=== PATIENT | female | born 1975 | race Caucasian/White ===

== ENCOUNTER 2016-08-08 14:20 | Observation (INO) ==
[2016-08-08] MEDS ORDERED: 0.9 % Sodium Chloride 500 ML IV ONE (15:28)
[2016-08-08 15:32] LABS: Basophils % 0.3 %; Eosinophils % 0.4 %; Hematocrit 37.9 % (35.3-44.9); Hemoglobin 12.3 g/dL (11.5-15.4); Immature Granulocytes % 0.4 % (0-4); Lymphocytes # 2.3 K/mcL (0.6-4.6); Lymphocytes % 20.4 %; Mean Corpuscular HGB Conc 32.5 g/dL (31.6-35.5); Mean Corpuscular Hemoglobin 26.3 pg (28.0-33.3); Mean Platelet Volume 10.3 fL (9.4-12.4); Monocytes # 0.4 K/mcL (0.0-1.3); Monocytes % 3.9 %; Neutrophils # 8.4 K/mcL (1.6-8.9); Platelet Count 333 K/mcL (140-400); Red Blood Count 4.68 M/mcL (3.82-4.97); Segmented Neutrophils % 74.6 %
--- NOTE | 2016-08-08 15:35 | Emergency Department Note ---
Disposition Clinical Impression: Chest pain Qualifiers: Chest pain type: precordial pain Qualified Code(s): R07.2 - Precordial pain Disposition: Admitted As Inpatient Condition: Good Chest Pain HPI - General Chief Complaint: ED Chest Pain Stated Complaint: CP Time Seen by Provider: 08/08/16 15:10 Source: patient Limitations: no limitations Vital Signs Reviewed: Yes Nursing Notes Reviewed: Yes - History of Present Illness HPI Narrative: 40-year-old female with history of blood clotting disorder that she is not know what it is, she is seen by Dr. Wynne, he saw her previously and her workup for factor V Leiden and other causes of clot disorders has been negative. Patient is chronically anticoagulated on Eliquis, she presents with chest pain and pressure for the last several days. She recently had a nonstress test with Dr. Rivera cardiology, that was slightly positive she was given Imdur, no left heart catheterization was performed. She now presents with 8 out of 10 crushing mid substernal pain, nonradiating, worse with deep breaths. She has previously had DVTs and is on ELiquis for prophylaxis, she had a CT of her chest done a few weeks ago to rule out PE. Pt complaint: chest pain Onset (ago): day(s) (4) Duration: intermittent Onset: during rest, during exertion Pain Location: substernal Severity: moderate Severity scale (1-10): 8 Quality: tightness, heaviness Pain Radiation: LUE Improves with: nothing Worsens with: exertion Associated symptoms: Reports: nausea, dyspnea. Denies: vomiting, diaphoresis Treatments prior to arrival chest pain: none - Related Data Home Medications Medication Instructions Recorded Confirmed Aspirin [Adult Low Dose Aspirin EC] 81 mg PO DAILY 08/01/15 08/08/16 [place]-3 Fatty Acids [Fish Oil] 600 mg PO DAILY 08/01/15 08/08/16 Hydrochlorothiazide [Microzide] 12.5 mg PO DAILY 09/09/15 08/08/16 Atorvastatin [Lipitor] 40 mg PO HS 07/31/16 08/08/16 Isosorbide MONOnitrate (24 HR) 60 mg PO DAILY 07/31/16 08/08/16 [Imdur] Previous Rx's Medication Instructions Recorded Apixaban [Eliquis] 2.5 mg PO BID #60 tablet 01/05/16 Ferrous Sulfate 325 mg PO DAILY #30 tablet 03/19/16 Allergies Allergy/AdvReac Type Severity Reaction Status Date / Time codeine AdvReac Nausea Verified 04/09/16 15:34 All systems ED: reviewed and negative except as stated. Constitutional: Denies: fever, chills, weakness ENT ED: Denies: ear pain, throat pain Cardiovascular: Reports: as per HPI, chest pain, dyspnea on exertion. Denies: palpitations, syncope, paroxysmal nocturnal dyspnea Respiratory: Reports: as per HPI, dyspnea. Denies: hemoptysis Gastrointestinal: Denies: abdominal pain, nausea, vomiting Genitourinary: Denies: urgency, dysuria Musculoskeletal: Denies: back pain, neck pain Integumentary: Denies: rash, abrasion Neurological: Denies: headache, weakness Chest Pain PMH - Past Medical History Medical history: Reports: hypertension, TIA Surgical history: Reports: Psychiatric history: Reports: no psych history DENTAL ASSISTANT INSTRUCTOR history: Reports: no DENTAL ASSISTANT INSTRUCTOR history - Social History Smoking Status: Former smoker Alcohol use: Reports: occasionally Drug use: Reports: none Physical Exam Constitutional: A 40-year-old female appears moderately uncomfortable, vital signs are essentially stable. Neck: normal inspection, neck is supple, trachea midline Resp: normal chest inspection, CTA bilaterally, no resp distress CV: RRR, no m/g/r GI: normal inspection, Soft, NTND, BS presen Back: normal inspection, no tenderness to palpation Neuro: A&O3, no gross motor or sensory deficits bilaterally Skin: No rashes, skin warm, dry, intact - General Limitations: no limitations General appearance: alert Course Course Narrative: 40-year-old female with history of blood clotting disorder, on anticoagulation chronically, concern for ACS, she was sent by cardiology for further workup, we will discuss with Dr. Sutherland after chest pain workup at a d-dimer will reassess - Consultations Consultation #1: Dr Sutherland called the emergency department, he recommends admission for ACS to the hospitalist service, discontinue paretic regulation tonight and start her on heparin, aspirin at this time is okay patient will likely have a left heart catheterization tomorrow morning with cardiology to place admission to hospitalist Dr. Shah excepting Vital Signs Temperature 98.3 F 08/08/16 14:22 Pulse Rate 67 08/08/16 14:22 Respiratory Rate 20 08/08/16 14:22 Blood Pressure 163/104 08/08/16 14:22 O2 Sat by Pulse Oximetry 100 08/08/16 14:22 Temperature 98.2 F 08/08/16 19:05 Pulse Rate 65 08/08/16 19:05 Respiratory Rate 16 08/08/16 19:05 Blood Pressure 116/75 08/08/16 19:05 O2 Sat by Pulse Oximetry 96 08/08/16 19:05 Oxygen Delivery Oxygen Delivery Room Air Chest Pain - Differential Diagnosis Likely: fracture of rib - Medical Records Medical records reviewed: Yes I reviewed the patient's medical records. - Lab Data Lab results reviewed: Yes I reviewed the patient's lab results. Result diagrams: 08/08/16 15:22 08/08/16 15:22 Lab Results 08/08/16 08/08/16 08/08/16 Range/Units 15:22 15:22 15:22 WBC 11.3 H (4.3-11.1) K/mcL RBC 4.68 (3.82-4.97) M/mcL Hgb 12.3 (11.5-15.4) g/dL Hct 37.9 (35.3-44.9) % MCV 81.0 L (83.0-100.0) fL MCH 26.3 L (28.0-33.3) pg MCHC 32.5 (31.6-35.5) g/dL RDW 15.0 H (11.5-14.5) % Plt Count 333 (140-400) K/mcL MPV 10.3 (9.4-12.4) fL Immature Gran % 0.4 (0-4) % Seg Neutrophils % 74.6 % Lymphocytes % 20.4 % Monocytes % 3.9 % Eosinophils % 0.4 % Basophils % 0.3 % Neutrophils # 8.4 (1.6-8.9) K/mcL Lymphocytes # 2.3 (0.6-4.6) K/mcL Monocytes # 0.4 (0.0-1.3) K/mcL Eosinophils # 0.0 (0.0-0.6) K/mcL Basophils # 0.0 (0.0-0.2) K/mcL PT 12.0 (9.4-12.1) Seconds INR 1.1 APTT 29.9 (26.0-36.0) Seconds D-Dimer 289 (0-500) ng/mLFEU Sodium 138 (136-145) mEq/L Potassium 3.5 (3.5-4.5) mEq/L Chloride 104 (98-109) mEq/L Carbon Dioxide 23 (19-29) mEq/L BUN 10 (7-20) mg/dL Creatinine 0.74 (0.57-1.11) mg/dL Est GFR ( Amer) > 60 (> 60) Est GFR (Non-Af Amer) > 60 (> 60) BUN/Creatinine Ratio 14 (6-26) Glucose 100 H (70-99) mg/dL Calculated Osmolality 285 (280-300) Calcium 8.8 (8.6-10.8) mg/dL Troponin I (0-0.03) ng/mL 08/08/16 Range/Units 15:22 WBC (4.3-11.1) K/mcL RBC (3.82-4.97) M/mcL Hgb (11.5-15.4) g/dL Hct (35.3-44.9) % MCV (83.0-100.0) fL MCH (28.0-33.3) pg MCHC (31.6-35.5) g/dL RDW (11.5-14.5) % Plt Count (140-400) K/mcL MPV (9.4-12.4) fL Immature Gran % (0-4) % Seg Neutrophils % % Lymphocytes % % Monocytes % % Eosinophils % % Basophils % % Neutrophils # (1.6-8.9) K/mcL Lymphocytes # (0.6-4.6) K/mcL Monocytes # (0.0-1.3) K/mcL Eosinophils # (0.0-0.6) K/mcL Basophils # (0.0-0.2) K/mcL PT (9.4-12.1) Seconds INR APTT (26.0-36.0) Seconds D-Dimer (0-500) ng/mLFEU Sodium (136-145) mEq/L Potassium (3.5-4.5) mEq/L Chloride (98-109) mEq/L Carbon Dioxide (19-29) mEq/L BUN (7-20) mg/dL Creatinine (0.57-1.11) mg/dL Est GFR ( Amer) (> 60) Est GFR (Non-Af Amer) (> 60) BUN/Creatinine Ratio (6-26) Glucose (70-99) mg/dL Calculated Osmolality (280-300) Calcium (8.6-10.8) mg/dL Troponin I 0.00 (0-0.03) ng/mL - Radiology Data Radiology results reviewed: Yes I reviewed the patient's radiology results. Chest X-Ray 08/08/16 14:25 IMPRESSION: No acute cardiopulmonary process. D/ / Aris Beckwith MD / Aris Beckwith MD Interpreting Provider: Aris Beckwith MD - EKG Data EKG attestation: Yes I reviewed and interpreted this EKG. EKG shows normal: sinus rhythm Rate: normal (63 bpm AL 146/102 QTc 446 Mrs. elevations or depressions. Similar to previous EKG on 07/2016) Vale/QRS: normal Interpretation: no acute changes - Core Measures AMI Core Measures Followed: Yes Heart Score - Score History: Moderately Suspicious EKG: Non Specific repolarisation Disturbance Age: Less than 45 Risk Factors: 1-2 risk factors Troponin: Less than normal limit HEART Score Total: 3 Attestation Statement - Attestation Attestation: I examined this patient and my medical decision-making was reviewed with the Resident Physician. I agree with the documented findings, disposition and treatment plan as described except to the extent set forth below. Known hypercoagulable state, presents w CP. Dr. Merino spoke w Cardio who wants pt admitted for heart cath. Serial EKGs neg, trop neg. D-dimer lower than her baseline.
[2016-08-08 15:36] LABS: INR 1.1
[2016-08-08 15:38] LABS: Activated Partial Thrombo Time 29.9 Seconds (26.0-36.0)
[2016-08-08 15:41] LABS: BUN/Creatinine Ratio 14 (6-26); Blood Urea Nitrogen 10 mg/dL (7-20); Calcium 8.8 mg/dL (8.6-10.8); Carbon Dioxide 23 mEq/L (19-29); Chloride 104 mEq/L (98-109); Glucose 100 mg/dL (70-99); Osmolality,Calculated 285 (280-300); Potassium 3.5 mEq/L (3.5-4.5); Sodium 138 mEq/L (136-145); eGFR For African Americans > 60 (> 60); eGFR For Non-African Americans > 60 (> 60)
[2016-08-08] MEDS ORDERED: Aspirin 325 MG TABLET PO ONE (16:27)
[2016-08-08] MEDS: Nitroglycerin 0.4 MG TAB.SUBL SL PRN ×3 (16:46→16:57)
--- NOTE | 2016-08-08 17:13 | Internal Med History&Physical ---
Date of Encounter: 08/08/16 Time of Encounter: 16:50 Assessment and Plan (1) Chest pain Current visit: Yes Status: Acute Acute left-sided chest pain. Atypical in nature but worsens with activity. Recent stress test showed possible apical reversible ischemia. Will treat with nitroglycerin, aspirin and statin. Patient on Eliquis. Will hold and start heparin. Consult cardiology. Plan for cardiac catheterization per the recommendations tomorrow. Place patient on telemetry. Trend troponins. Qualifiers: Chest pain type: precordial pain Qualified Code(s): R07.2 - Precordial pain (2) Thrombotic disorder Current visit: Yes Status: Chronic Patient on anticoagulation with Eliquis. We will hold for now and start IV heparin. Internal Medicine - H&P: HPI Chief complaint: Chest pain Admitted From: Emergency Dept Plans for Post Hospital Care: Home History of present illness: Ms. Mejia is a 40 year old female with history of unknown related disorder and previous venous thromboembolism presented to the ER with complaints of chest pain. She has been having dull aching kind of chest pain for past 2 months and has been having intermittent sharp stabbing kind of chest pain along with it. Today's episode started around 10:30 AM and has continued despite receiving 3 doses of nitroglycerin. Pain is located in the left side of her chest wall and it is nonradiating. It is associated with shortness of breath especially with ambulation. No palpitations. No nausea vomiting or diarrhea. Past Med Surg Social Fam HX - Past Medical History Medical history: hypertension, TIA Psychiatric history: no psych history - Past Surgical History Surgical History: - Social History Smoking Status: Former smoker Smokeless Tobacco Status: No Alcohol use: occasionally Drug use: none Internal Medicine - H&P: Meds Aspirin [Adult Low Dose Aspirin EC] 81 mg PO DAILY 08/01/15 [History] [place]-3 Fatty Acids [Fish Oil] 600 mg PO DAILY 08/01/15 [History] Hydrochlorothiazide [Microzide] 12.5 mg PO DAILY 09/09/15 [History] Apixaban [Eliquis] 2.5 mg PO BID #60 tablet 01/05/16 [Rx] Ferrous Sulfate 325 mg PO DAILY #30 tablet 03/19/16 [Rx] Atorvastatin [Lipitor] 40 mg PO HS 07/31/16 [History] Isosorbide MONOnitrate (24 HR) [Imdur] 60 mg PO DAILY 07/31/16 [History] Allergies codeine Adverse Reaction (Verified 04/09/16 15:34) Nausea All Systems PM: A 10-system review of systems was performed and is negative for pertinent findings except as documented above in the HPI. - Constitutional Constitutional: no chills, no fever(s), no night sweats - EENT Eyes: no change in vision, no discharge, no pain, no photophobia Ears: no ear discharge, no ear pain, no tinnitus Nose, mouth and throat: no dysphagia, no nasal discharge, no neck pain, no sore throat - Cardiovascular Cardiovascular ROS IM: chest pain, dyspnea on exertion, no diaphoresis, no dyspnea, no lightheadedness, no palpitations, no syncope - Respiratory Respiratory: no cough, no dyspnea, no wheezing, no excessive phlegm production - Gastrointestinal Gastrointestinal: no abdominal pain, no diarrhea, no hematemesis, no hematochezia, no melena, no nausea, no vomiting - Genitourinary Genitourinary: no change in urinary stream, no dysuria, no flank pain, no hematuria - Musculoskeletal Musculoskeletal ROS IM: no numbness, no tingling - Integumentary Integumentary IM: no rash, no unusual bruising - Neurological Neurological ROS: no confusion, no convulsions, no focal weakness, no numbness, no tingling, no tremor(s) - Hematologic/Lymphatic Hematologic/Lymphatic: no easy bruising - Constitutional Vitals: Temp Pulse Resp BP Pulse Ox 98.3 F 77 18 134/86 99 08/08/16 14:22 08/08/16 17:02 08/08/16 17:05 08/08/16 17:05 08/08/16 17:02 General appearance: Present: cooperative, A&O X 3, obese, answers questions appropriately Exam: Moderate distress - Head Head exam: Present: atraumatic, normocephalic - Eye Eye exam: Present: EOMI, PERRL, conjuntiva pink, sclera anicteric - Neck Neck exam general surgery: Present: supple, trachea midline. Absent: lymphadenopathy - Respiratory Respiratory exam: Present: CTAB. Absent: accessory muscle use, rales, rhonchi, wheezes - Cardiovascular Cardiovascular exam: Present: RRR, +S1, +S2. Absent: diastolic murmur, gallop, rubs, systolic murmur Additional comments: Left-sided chest wall tenderness present to deep palpation - GI/Abdominal GI/Abdominal exam: Present: normal bowel sounds, soft, no peritoneal signs. Absent: distended, tenderness - Extremities Exam Extremities exam: Present: warm, radial pulses palpable and symetrical. Absent : calf tenderness, cyanotic, pedal edema - Neurological Exam Neurological exam: Present: CN II-XII intact, oriented X3, no focal deficits, strengths equal and symetr throughout. Absent: facial droop, speech deficit - Skin Skin exam: Present: dry, intact Internal Med - H&P Results - Labs CBC & Chem 7: 08/08/16 15:22 08/08/16 15:22 - EKG Data -: EKG Interpreted by Myself EKG shows normal: sinus rhythm - EKG Data Interpretation IM: normal EKG - Impressions Impressions Chest X-Ray 08/08/16 14:25 IMPRESSION: No acute cardiopulmonary process. D/ / Aris Beckwith MD / Aris Beckwith MD Interpreting Provider: Aris Beckwith MD - Attending Attestation This document has been at least partially created by [employer] recognition technology by Dr. Santiago. Errors in grammar, wording or other phrases may exist. If errors are found after the documentation is signed, they will be addressed individually in the addendum section of this document when appropriate.
[2016-08-08] MEDS ORDERED: *HR* Morphine 2 MG/ML SYRINGE IVP PRN (17:21)
[2016-08-08] MEDS ORDERED: *HR* Heparin 5,000 UNIT/ML VIAL IVP PRN ×2 (17:21)
[2016-08-08] MEDS ORDERED: Nitroglycerin 25 MG/250 ML INFUS..BTL IVC SCH (17:30)
[2016-08-08] MEDS ORDERED: Heparin 25,000 UNIT/500 ML D5W 25,000 UNIT/500 ML MLS IVC SCH (17:30)
[2016-08-09 04:50] LABS: INR 1.1; Prothrombin Time 12.2 Seconds (9.4-12.1)
[2016-08-09 05:49] LABS: Basophils % 0.4 %; Eosinophils # 0.1 K/mcL (0.0-0.6); Eosinophils % 1.2 %; Hematocrit 34.8 % (35.3-44.9); Hemoglobin 11.1 g/dL (11.5-15.4); Immature Granulocytes % 0.3 % (0-4); Lymphocytes # 3.5 K/mcL (0.6-4.6); Lymphocytes % 34.4 %; Mean Corpuscular HGB Conc 31.9 g/dL (31.6-35.5); Mean Corpuscular Hemoglobin 26.7 pg (28.0-33.3); Mean Corpuscular Volume 83.9 fL (83.0-100.0); Mean Platelet Volume 11.2 fL (9.4-12.4); Monocytes # 0.4 K/mcL (0.0-1.3); Monocytes % 4.1 %; Platelet Count 285 K/mcL (140-400); Red Blood Count 4.15 M/mcL (3.82-4.97); Red Cell Distribution Width 15.4 % (11.5-14.5); Segmented Neutrophils % 59.6 %
[2016-08-09 05:51] LABS: BUN/Creatinine Ratio 13 (6-26); Blood Urea Nitrogen 10 mg/dL (7-20); Calcium 8.2 mg/dL (8.6-10.8); Carbon Dioxide 24 mEq/L (19-29); Chloride 104 mEq/L (98-109); Glucose 84 mg/dL (70-99); Osmolality,Calculated 284 (280-300); Potassium 3.2 mEq/L (3.5-4.5); Sodium 138 mEq/L (136-145); eGFR For African Americans > 60 (> 60); eGFR For Non-African Americans > 60 (> 60)
[2016-08-09] MEDS ORDERED: (Omega-3 Fatty Acids [Fish Oil] 600 MG) PO SCH (09:00)
[2016-08-09] MEDS ORDERED: hydroCHLOROthiazide 25 MG TABLET PO SCH (09:00)
[2016-08-09] MEDS ORDERED: Aspirin Enteric Coated 81 MG Tablet PO SCH (09:00)
--- NOTE | 2016-08-09 10:02 | Internal Med Progress Note ---
Date of Encounter: 08/09/16 Time of Encounter: 08:30 - Assessment and plan (1) Chest pain Status: Acute Assessment and plan: Pt reports 2 month history of dull, achey, constant L chest pain, worse with exertion. Pt was placed on Imdur by cardiology and reports no relief. 9 days ago she started having sharp, intermittent L chest pain that was also worse with exertion. She denies nausea, diaphoresis, or radiation of pain. Pt was seen in the ED for the same 9 days ago and was sent home after negative evaluation. Pain became worse yesterday with SOB also with exertion. Pt had stress recently that showed possible apical reversible ischemia. Pt was seen by cardiology this a.m. and may have cath today. Troponins were all negative, 0.00 , EKG NSR. Telemetry Heparin gtt Nitroglycerin gtt Monitor labs Cardiology for possible cath Cardiac diet after NPO Qualifiers: Chest pain type: other chest pain Qualified Code(s): R07.89 - Other chest pain; R07.8 - Other chest pain (2) Thrombotic disorder Status: Chronic Assessment and plan: Pt states that she has been treated by Dr. Navarrete for undiagnosed clotting disorder. Pt has strong family history of Factor V, but states that she was told that was not what she has. Pt had TIA last May that possibly resulted from superficial clot in her leg and she was finally placed on Eliquis. Last dose of Eliquis was yesterday at 0700 and she was started on Heparin gtt last night at 2000 in anticipation of possible cath this am. INR 1.1 this a.m. Heparin gtt Monitor labs (3) Iron deficiency anemia Status: Chronic Assessment and plan: Pt states that she was found to be anemic and again was being seen by Dr. Navarrete. Pt states that she has an appt with new religious studies professor in late August. PCP started her on her iron supplements recently and she has not been as fatigued as she had been when she had stopped taking them when her levels normalized and supplementation was stopped by Rosalba. Hgb 11.1 today. Monitor labs Continue FeSo4 dose from home. Qualifiers: Iron deficiency anemia type: unspecified iron deficiency Qualified Code(s) : D50.9 - Iron deficiency anemia, unspecified (4) DVT (deep venous thrombosis) Status: Acute Assessment and plan: Heparin gtt currently in anticipation of cardiac cath. Pt takes Eliquis for what she refers to as a superficial clot last May that was linked to TIA. INR 1.1. Monitor coagulation labs Maintain heparin gtt Qualifiers: DVT location: lower extremity Laterality: right Chronicity: chronic Qualified Code(s): I82.501 - Chronic embolism and thrombosis of unspecified deep veins of right lower extremity - Time Spent With Patient less than 15 minutes - Subjective Interval history: Pt reports 2 month history of constant dull ache in L chest with intermittent sharp, stabbing pain in L chest x 9 days. Pt was seen in ED last week for same and sent home, pain did not subside. She reports pain and sob with exertion yesterday while walking to meeting and up and down some stairs. States that she did get partial relief at midnight while lying still and on NTG gtt. She is still having the constant dull pain, but the sharp pains have stopped. - Constitutional Vitals: Temp Pulse Resp BP Pulse Ox 98.1 F 62 16 148/90 98 08/09/16 09:25 08/09/16 09:25 08/09/16 09:25 08/09/16 09:25 08/09/16 09:25 General appearance: Present: cooperative, A&O X 3, no acute distress, obese, answers questions appropriately - Head Head exam: Present: atraumatic, normal inspection - Eye Eye exam: Present: normal appearance, conjuntiva pink - ENT ENT exam: Present: mucous membranes moist, normal exam - Neck Neck exam general surgery: Present: full ROM, normal inspection. Absent: lymphadenopathy, tenderness - Respiratory Respiratory exam: Present: CTAB. Absent: chest wall tenderness, decreased breath sounds, rales, respiratory distress, rhonchi, stridor, wheezes - Cardiovascular Cardiovascular exam: Present: RRR, +S1, +S2. Absent: diastolic murmur, systolic murmur - GI/Abdominal GI/Abdominal exam: Present: normal bowel sounds. Absent: hepatomegaly, tenderness - Extremities Exam Extremities exam: Present: full ROM, normal capillary refill, normal inspection , warm, radial pulses palpable and symetrical. Absent: calf tenderness, cyanotic, joint swelling, pedal edema, tenderness - Neurological Exam Neurological exam: Present: alert, oriented X3, no focal deficits. Absent: facial droop, speech deficit - Psychiatric Psychiatric exam: Present: normal affect, normal mood Internal Medicine: Result - Labs CBC & Chem 7: 08/09/16 02:06 08/09/16 02:06 Labs: Short CBC 08/09/16 Range/Units 02:06 WBC 10.1 (4.3-11.1) K/mcL Hgb 11.1 L (11.5-15.4) g/dL Hct 34.8 L (35.3-44.9) % Plt Count 285 (140-400) K/mcL Neutrophils # 6.0 (1.6-8.9) K/mcL BMP 08/09/16 02:06 Sodium 138 Potassium 3.2 L Chloride 104 Carbon Dioxide 24 BUN 10 Creatinine 0.77 Glucose 84 Calcium 8.2 L Cardiac Enzymes 08/09/16 08/09/16 Range/Units 02:06 08:53 Troponin I 0.00 0.00 (0-0.03) ng/mL - ABG Interpretation ABG results: PT/INR, D-dimer PT 12.2 Seconds (9.4-12.1) H 08/09/16 02:06 D-Dimer 289 ng/mLFEU (0-500) 08/08/16 15:22 Consult Discharge Plan - Plan Instructions: Chest Pain (DC) Additional Instructions: Please remember to take your Eliquis twice daily Please restart your home medications, Eliquis tonight. Please follow up with your primary care provider within the next week to 10 days for follow up Keep your appointment with Dr. Sutherland on Saturday Return if you have any other problems or concerns or if your pain returns. Referrals: Hortencia Haro CNP [Primary Care Provider] - 08/17/16 10:30 am
--- NOTE | 2016-08-09 10:54 | Cardiology Consult Note ---
Date of Encounter: 08/09/16 Time of Encounter: 09:00 Assessment and Plan (1) Chest pain Current Visit: Yes Status: Acute Per cardiology: -Acute episode of sharp stabbing chest pain that occured with excertion. -Chest pain associated with increased fatigue and increased shortness of breath. -Stress 07/13/16 with small sized, mild intensity, reversible apical septal defect. Could be very small area of ischemia vs. artifact. -On asa, statin, heparin drip, and nitro drip. -Failed conservative outpatient treatment with imdur. -Takes eliquis at home for history of DVT, has not had since yesterday morning. -ECG with sinus rhythm. -K 3.2 -Echo showed EF 60%, mild to moderate AR, normal diastolic function June 2015. -DIscussed with Dr.JOhn Li. PLan for LHC today. Risks versus benefits of LHC explained to pateint. Patient agreeable to cath. -Will replace K. -Further recommendations once cardiac catheterization complete. (LYNDSEY) Qualifiers: Chest pain type: other chest pain Qualified Code(s): R07.89 - Other chest pain; R07.8 - Other chest pain Discussion w patient/family: The assessment and plan as outlined above was discussed with the patient who expressed understanding and agreement. All questions were answered. Thank you for involving us in the care of your patient. Please call with any questions. Patient was seen and examined with JULIANN Kamara DIscussed and reviewed with Dr.John Li. History of Present Illness Consult date: 08/08/16 Requesting physician: Berlin Merino Consult reason: chest pain Chief complaint: chest pain History of present illness: Ms. Mejia is a 40 year old female with a relevant past medical history of HTN, anemia, TIA, DVT, previous smoker. Patient has been having a dull chest pain for the past 2 months. Patient has had multiple trips to the ER and has been seen by . ON 07/13/16 patient had nuclear stress test which showed EF 68% , small sized, mild intensity, reversible apical septal defect. This was read as could represent a very small area of ischemia, however it is suspected to be artifact. Patient was seen by 07/18/16, at that visit the pateint was started on imdur. At that time, she was agreeable to watch and monitor. The patient states that with the imdur the chest pain was tolerable. SHe states it was never completely releived, but it was better. Patient states last week she had an episode of sharp. stabbing pain which is unlike her normal pain. SHe states she went to the ER and troponins were negative and ECG was normal. The ER provider was in contact with cardiology office and made her a close follow up appoiintment with . Yesterday, the patient was climbing a flight of stairs when she got intense, sharp, stabbing left sided chest pain. Patient states she sat down and the pain lessened. Patient came to ER and was given nitro in ER. Patient states this lessened pain more. Patient states pain was never completely relieved until she laid down. Currently patient has her normal dull aching chest pain, but does not have sharp stabbing pain. Patient is currently on a nitro drip at 10mcg/min. (LYNDSEY). Past Med Surg Social Fam HX - Past Medical History Attestation: Yes The following information was validated with the patient. Source: patient, old records reviewed Medical history: DVT, hypertension, TIA Psychiatric history: no psych history - Past Surgical History Surgical History: - Social History Smoking Status: Former smoker Smokeless Tobacco Status: No Alcohol use: occasionally Drug use: none - Family History Mother Living Status: Age at : 60 Cause of : Heart Attack Hx Family Cardiac Disorders: Yes Hx Family Cancer: Yes Hx Family Endocrine Disorder: Yes Father Living Status: Age at : 62 Cause of : Sepsis Hx Family Cancer: Yes Medications and Allergies Aspirin [Adult Low Dose Aspirin EC] 81 mg PO DAILY 08/01/15 [History] [place]-3 Fatty Acids [Fish Oil] 600 mg PO DAILY 08/01/15 [History] Hydrochlorothiazide [Microzide] 12.5 mg PO DAILY 09/09/15 [History] Apixaban [Eliquis] 2.5 mg PO BID #60 tablet 01/05/16 [Rx] Ferrous Sulfate 325 mg PO DAILY #30 tablet 03/19/16 [Rx] Atorvastatin [Lipitor] 40 mg PO HS 07/31/16 [History] Isosorbide MONOnitrate (24 HR) [Imdur] 60 mg PO DAILY 07/31/16 [History] Allergies codeine Adverse Reaction (Verified 04/09/16 15:34) Nausea All Systems Review: A 10-system review of systems was performed and is negative for pertinent findings except as documented above in the HPI. - Constitutional Constitutional: fatigue - Cardiovascular Cardiovascular: as per HPI, chest pain at rest, chest pain with exertion, dyspnea on exertion - Respiratory Respiratory: dyspnea Physical Examination Vital Signs, Last 4 Hours Temp Pulse Resp BP Pulse Ox 08/09/16 09:25 98.1 F 62 16 148/90 98 08/09/16 07:04 97.8 F 65 17 132/84 100 General: Conversant, No Apparent Distress HEENT: Atraumatic, Normocephaly, Mucus Membranes Moist Neck: No JVD, Normal carotid pulses Cardiac: Reg Rate and Rhythm, Normal S1 and S2, No Murmur Lungs: Normal Breath Sounds, No Wheeze, Rales, Rhonchi Neuro: Alert and responsive, No focal deficits noted Abdomen: Soft, Non-Tender Skin: No rashes noted on visualized skin Musculoskeletal: No Chest Wall Tenderness Extremities: No Clubbing, No Cyanosis, No Edema, Normal Pulses Results 08/09/16 02:06 08/09/16 02:06 Lab Results Impressions Chest X-Ray 08/08/16 14:25 IMPRESSION: No acute cardiopulmonary process. D/ / Aris Beckwith MD / Aris Beckwith MD Interpreting Provider: Aris Beckwith MD Active Medications Acetaminophen (Tylenol) 500 mg PO Q6HR PRN PRN Reason: Mild Pain Stop: 02/07/17 17:22 Aspirin (Aspirin Ec) 81 mg PO DAILY ROSANNE Stop: 02/08/17 09:01 Last Admin: 08/09/16 10:46 Dose: 81 mg Atorvastatin Calcium (Lipitor) 40 mg PO HS ROSANNE Stop: 02/07/17 21:01 Last Admin: 08/08/16 20:05 Dose: 40 mg Ferrous Sulfate (Ferrous Sulfate) 325 mg PO DAILY ROSANNE Stop: 02/08/17 09:01 Last Admin: 08/09/16 10:47 Dose: 325 mg Heparin Sodium (Porcine) (Heparin) 4,000 unit IVP Q6HR PRN PRN Reason: SEE COMMENTS Stop: 02/07/17 17:22 Last Admin: 08/09/16 05:15 Dose: 4,000 unit Heparin Sodium (Porcine) (Heparin) 2,000 unit IVP Q6H PRN PRN Reason: SEE COMMENTS Stop: 02/07/17 17:22 Hydrochlorothiazide (Hydrochlorothiazide) 12.5 mg PO DAILY ROSANNE Stop: 02/08/17 09:01 Last Admin: 08/09/16 10:47 Dose: 12.5 mg Heparin Sodium/Dextrose (Heparin 25,000 Unit/500 Ml D5w) 25,000 unit in 500 mls @ 20.684 mls/hr IVC .Q24H ROSANNE; 12 UNIT/KG/HR PRN Reason: Protocol Stop: 02/07/17 17:31 Last Titration: 08/09/16 04:44 Dose: 16.12 unit/kg/hr, 27.785 mls/hr Nitroglycerin (Nitroglycerin) 25 mg in 250 mls @ 3 mls/hr IVC .Q24H ROSANNE; 5 MCG/ MIN PRN Reason: Protocol Stop: 02/07/17 17:31 Last Titration: 08/08/16 21:24 Dose: 10 mcg/min, 6 mls/hr Morphine Sulfate (Morphine Sulfate) 4 mg IVP Q3H PRN PRN Reason: Severe Pain (7-10) Stop: 02/07/17 17:22 Nitroglycerin (Nitroglycerin) 0.4 mg SL Q5MIN PRN PRN Reason: Chest Pain Stop: 02/07/17 16:28 Last Admin: 08/08/16 16:57 Dose: 0.4 mg Pharmacy Profile Note (Patient Taking Own Medication) 0 each PO DAILY ROSANNE Stop: 02/08/17 09:01 Last Admin: 08/09/16 10:47 Dose: Not Given Laboratory Tests 08/08/16 08/09/16 08/09/16 15:22 02:06 02:06 WBC 10.1 Hgb 11.1 L Potassium 3.2 L Creatinine 0.77 Troponin I 0.00 08/09/16 08/09/16 02:06 08:53 WBC Hgb Potassium Creatinine Troponin I 0.00 0.00 - Imaging and Cardiology Chest Xray: report reviewed Stress Test: report reviewed Echo: report reviewed - EKG Interpretation EKG results cardiology: personally reviewed (ECG with sinus rhythm), other ( Telemtry reviewed with average heart rate 63, occasional PVCs and PACs noted.) Consult Discharge Plan - Plan Referrals: Hortencia Haro CNP [Primary Care Provider] -
--- NOTE | 2016-08-09 12:41 | Pre-Sedation Evaluation ---
Pre-sedation evaluation - Pre-sedation checklist Date of procedure: 08/09/16 Procedure: heart cath Recent Vitals: Last Vital Signs Temp 97.9 F 08/09/16 10:59 Pulse 69 08/09/16 10:59 Resp 15 08/09/16 10:59 BP 131/79 08/09/16 10:59 Pulse Ox 100 08/09/16 10:59 H&P (including ROS) documented in medical record: Yes Previous reaction to sedatives/anesthetics: Yes; explain in comment Dietary Status: NPO after Midnight Dentition: No loose teeth or bridges ASA Classification *see protocol: CLASS II-Mild systemic disease Plan of Care: Pt appropriate candidate for procedure/moderate/conscious sedation , Risks/benefits of procedure/sedation discussed w/ patient/family
--- NOTE | 2016-08-09 12:49 | Electrocardiograph Report ---
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
--- NOTE | 2016-08-09 12:54 | Electrocardiograph Report ---
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
[2016-08-09] MEDS ORDERED: *HR* Heparin 10,000 UNIT/10 ML VIAL ONE (13:51)
[2016-08-09] MEDS ORDERED: 0.9 % Sodium Chloride 2,000 ML ONE (13:51)
[2016-08-09] MEDS ORDERED: Heparin 1,000 UNITS/500 mL NS 500 ML ONE (13:51)
[2016-08-09] MEDS ORDERED: Nitroglycerin 1,000 MCG/10 ML VIAL IV ONE (13:52)
[2016-08-09] MEDS ORDERED: Verapamil 5 MG/2 ML VIAL ONE (14:02)
[2016-08-09] MEDS ORDERED: *HR* FentaNYL (PF) 100 MCG/2 ML VIAL ONE (14:11)
[2016-08-09] MEDS ORDERED: *HR* Midazolam HCl 2 MG/2 ML VIAL ONE ×2 (14:11→14:26)
--- NOTE | 2016-08-09 14:21 | Electrocardiograph Report ---
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
--- NOTE | 2016-08-09 14:59 | Invasive Diagnostic Lab Proc ---
Name: Zee Mejia Date of Study: 08/09/2016 Date: 1975 Ht: 66.1in Medical Record#: [id number] Age: 40 Wt: 196.21lb Gender: Female BSA: 1.99 Order #: [id number] BMI: 31.53 Physicians Procedure Physician: Sean Mantilla MD, FACC Referring MD: Hortencia Haro CNP Referring MD: Staff Name Position Time In Ashyln Willson RN Monitor 02:15 PM Kelsey Thomas RN Drapery Estimator 02:15 PM Winter Lin RT (R) Scrub 02:15 PM Kristy Bar RN Drapery Estimator 02:15 PM Indications Indication Unstable Angina Procedures Performed Procedure L HRT ARTERY/VENTRICLE ANGIO Pre-Procedure Checklist Informed consent is complete signed and on chart. H\\T\\P is on chart. ID band is on and ID verified with patient. Patient NPO for procedure The procedure was described for the patient and questions were answered. ECG is on chart. Rhythm: NSR Plan of Care Patient will tolerate the procedure without complications. Adequate level of comfort will be maintained. Hemodynamics will remain stable Patient will recover from procedure without complications. Respiratory function will be maintained. Cardiac rhythm will remain stable. Patient temperature will be maintained. Patient and/or family have verbalized understanding of the procedure. Patient Education Chief Complaint/Reason for Test: Cardiac Cath Developmental Category: Adult (18-64 years) Learning Barriers: None Education Needs: Procedure Education Method: Verbal Information Taught: Cardiac Cath Educational Evaluation: Able to repeat information Intravenous Access Time IV Size Location DC'd Fluid/Drip Rate Units RN 02:03 PM 20g 1 05/30" Patent On Arrival Lt Arm 0.9NaCl 25 ml/hr Brian, Winter RT (R) Allergies codeine Vital Signs Time BP (mmHg) HR (bpm) O2 Sat. RR (bpm) LOC 02:17 PM / % 5 = Fully awake and oriented or at pre-proc level 02:17 PM / % 4 = Oriented but drowsy 02:16 PM 147 / 86 79 100 % 14 02:20 PM 152 / 83 66 98 % 24 02:25 PM 152 / 76 61 98 % 20 02:31 PM 133 / 59 77 89 % 25 02:35 PM 135 / 72 74 92 % 21 02:40 PM 145 / 72 67 100 % 18 02:32 PM / % 4 = Oriented but drowsy Procedural Medications Time Medication Dose Units Method Given By 02:19 PM Oxygen 2 L/min nasal cannula Kristy Bar RN 02:19 PM Versed 2 mg Intravenous Kristy Bar RN 02:19 PM Fentanyl 50 mcg Intravenous Kristy Bar RN 02:26 PM Lidocaine 2% 1 ml Subcutaneous Sean Mantilla MD, FACC 02:27 PM Versed 2 mg Intravenous Kristy Bar RN 02:28 PM Fentanyl 50 mcg Intravenous Kristy Bar RN 02:28 PM Nitroglycerin 200 mcg Verapamil 2.5 mg Intraarterial Sean Mantilla MD, FACC 02:31 PM Oxygen 4 L/min nasal cannula Kristy Bar RN ASA Classification: CLASS II- Mild systemic disease (i.e. well-controlled diabetes, hypertension, asthma, cigarette smoking) Robina Score Preprocedure Postprocedure Activity 2- Moves 4 extremities sustained head lift Activity Circulation 2- SBP +/= 20 points of pre-anesthetic level Circulation Consciousness 2- Awake and alert oriented x 3 Consciousness O2 Saturation 2- Able to maintain O2 satruation of 92% on room air O2 Saturation Respiratory 2- Able to deep breathe and cough well Respiratory Total Score 10 Total Score Contrast Agent: Isovue Diagnostic Contrast: 53 ml Total Contrast: 53 ml Procedure Log Time Note Enter By 02:00 PM CathStat 02:14 PM Vitals capture started with the following parameters, Patient=Adult, Interval=5 min, Initial Hlpcsgjw=077 mmHg, Deflation Rate=5 mmHg, Cuff placed on Left Arm 02:15 PM Pt arrived to laboratory worker 2 at 14:14 scoates 02:15 PM Ashlyn Willson RN Position: Monitor Time in: 14:15 scoates 02:15 PM Patient charges- Angio tray pack, Navilyst 3mm J, Pulse Oximetry and ACIST tubing and transducer scoates 02:15 PM Physician arrived 14:18 scoates 02:15 PM Meet and greet completed scoates 02:15 PM Sign in performed according to hospital policy. scoates 02:15 PM Procedure start 14:15 scoates 02:15 PM Kelsey Thomas RN Position: Drapery Estimator Time in: 14:15 scoates 02:15 PM Winter Lin RT (R) Position: Scrub Time in: 14:15 scoates 02:15 PM Kristy Bar RN Position: Drapery Estimator Time in: 14:15 scoates 02:16 PM HR=79 bpm, EJRM=577/86 mmhg, FaE4=677.0 %, Resp=14 B/min, Comment=nsr 02:17 PM Case Delayed No; inpatient scoates 02:17 PM Time: 14:17 Patient comfortable and pain free: Yes scoates 02:17 PM Time: 14:17LOC: 5 = Fully awake and oriented or at pre-proc level scoates 02:18 PM Hair removed from procedure site in procedure lab using clippers. Right groin and rt wrist prepped with Chloraprep by Kelsey Thomas RN, safety strap applied then patient was draped. Skin intact. scoates 02:18 PM ASA Class CLASS II- Mild systemic disease (i.e. well-controlled diabetes, hypertension, asthma, cigarette smoking) scoates 02:19 PM Time: 14:19 Oxygen on at 2 L/min per nasal cannula by Kristy Bar RN scoates 02:19 PM Time: 14:19 Versed 2 mg Intravenous Given by Kristy Bar RN scoates 02:19 PM Time: 14:19 Fentanyl 50 mcg Intravenous Given by Kristy Bar RN scoates 02:20 PM HR=66 bpm, GMCD=640/83 mmhg, SpO2=98.0 %, Resp=24 B/min, Comment=nsr 02:25 PM HR=61 bpm, HUAG=576/76 mmhg, SpO2=98.0 %, Resp=20 B/min, Comment=nsr 02:25 PM Clinical Presentation: Unstable angina scoates 02:26 PM Time out performed according to hospital policy scoates 02: PM Time: 14:26 1 ml Lidocaine 2% to right radial Subcutaneous Given by Sean Mantilla MD, [facility] scoates 02: PM Pressure channel 1 zeroed. 02:27 PM Access obtained by percutaneous puncture. 6Fr 11cm Terumo Glidesheath sheath placed in right Radial artery. [id number] scoates 02: PM Time: 14: Versed 2 mg Intravenous Given by Kristy Bar RN scoates 02:28 PM Time: 14:28 Fentanyl 50 mcg Intravenous Given by Kristy Bar RN scoates 02:28 PM Time: 14:28 Patient given , 200 mcg Nitroglycerin, and 2.5 mg Verapamil Intraarterial by Sean Mantilla MD, [facility] scoates 02:29 PM 5Fr TIG catheter inserted over the wire [facility] scoates 02:29 PM Pressure channel 1 zeroed. 02:30 PM Recorded Pressure: LV, HR=75, Condition=Condition 1 (Left Ventricle) LV 125/7/14 02:30 PM Recorded Pressure: LV, Ao, HR=77, Condition=Condition 1 (Left Ventricle) LV 116/42/13, (Aorta) Ao 123/86/103 02:31 PM Catheter selectively placed in left ventricle scoates 02:31 PM HR=77 bpm, DJPY=113/59 mmhg, SpO2=89.0 %, Resp=25 B/min, Comment=nsr 02:31 PM Bolus angiogram of left Ventricle complete: 10 ml/sec for a total of 20 mls scoates 02:31 PM Time: 14:31 Oxygen on at 4 L/min per nasal cannula by Kristy Bar RN scoates 02:31 PM LCA angiography performed in multiple views. scoates 02:32 PM Coronary Dominance: right scoates 02:32 PM Time: 14:17 Patient comfortable and pain free: Yes scoates 02:32 PM repositioning catheter to RCA scoates 02:33 PM Catheter removed scoates 02:33 PM 5Fr FL3.5 catheter inserted over the wire [id number] scoates 02:34 PM LCA angiography performed in multiple views. scoates 02:34 PM Recorded Pressure: Ao, HR=72, Condition=Condition 1 (Aorta) Ao 115/91/103 02:34 PM Catheter removed scoates 02:34 PM 5Fr 3DRC catheter inserted over the wire [id number] scoates 02:35 PM HR=74 bpm, UGUC=827/72 mmhg, SpO2=92.0 %, Resp=21 B/min, Comment=nsr 02:36 PM Recorded Pressure: Ao, HR=71, Condition=Condition 1 (Aorta) Ao 114/90/103 02:38 PM Coronary Dominance: right scoates 02:39 PM Procedure completed at 14:39 scoates 02:40 PM Sign out completed: Radiation Dose 179 mGy Fluoro Time: 3.3 Isovue 370 - 200ml contrast 53 ml given by Sean Mantilla MD, FACC. Complications: NoneCardiac Rehab Consult needed: NoConfirmed administered medications: yes scoates 02:40 PM 3Isovue 370 - 200ml,1 Bottle(s) used. scoates 02:40 PM Arterial sheath pulled, Vasc Band closure device used and was Successful S/N. scoates 02:40 PM HR=67 bpm, SPKK=913/72 mmhg, ViN2=480.0 %, Resp=18 B/min, Comment=nsr 02:40 PM 10 ml air in Vasc Band. scoates 02:40 PM Post ECG NSR scoates 02:40 PM Post Blood Pressure 145/72 scoates 02:41 PM 14:40 Post Pulses Rt Radial 1+ scoates 02:41 PM Information taught Cardiac Cath scoates 02:42 PM Education needs Procedure, Plan of Care, and Responsibilities of Patient in Care scoates 02:43 PM Learning barriers :None scoates 02:43 PM Education evaluation Able to repeat information scoates 02:44 PM Site status No bleeding/hematoma - Rt Wrist as reported by Winter Lin RT (R) at 14:43 scoates 02:45 PM Plavix, Effient or Brilinta given No scoates 02:45 PM Delay to floor No scoates 02:45 PM Family placed in consult room. scoates 02:45 PM Complications: None scoates 02:45 PM Fluoro Time: 3.3 scoates 02:45 PM Isovue 370 - 200ml contrast 53 ml given by Sean Mantilla MD, FACC. scoates 02:45 PM Radiation Dose mGy scoates 02:47 PM Time: 14:32LOC: 4 = Oriented but drowsy scoates 02:47 PM Time: 14:32 Patient comfortable and pain free: Yes scoates 02:49 PM Report given to Lela FRANCE Pt taken to 3B Room #16. 14:48 scoates 02:49 PM Patient out of room: 14:49 scoates Complications Complication None None Hemodynamics Pressures Site Systolic/A Wave Diastolic/V Wave Mean LV 125 7 14 LV 116 42 13 AO 123 86 103 AO 115 91 103 AO 114 90 103 Post Procedure Information Blood Pressure: 145/72 mmHg Rhythm: NSR Post procedural instructions were given Closure Device Time Device Success/Fail 08/09/2016 2:45:00 PM Mechanical Compression Successful Site Checks Time Location Status Staff Sheath In? Note 02:43 PM Rt Wrist No bleeding/hematoma Winter Lin RT (R) Pulses Time Site Pre-Procedure Post-Procedure Note 08/09/2016 2:15:00 PM Rt Radial Normal plethysmography's Test 08/09/2016 2:15:00 PM Bilateral radial 2+ 08/09/2016 2:15:00 PM Bilateral DP \\T\\ PT 2+ 2:40:00 PM Rt Radial 1+ Updated by Ashlyn Mccarthy RN on 08/09/2016 2:54:39 PM electronically signed on 08/09/2016 2:55:52 PM with status of Final
--- NOTE | 2016-08-09 15:10 | Event Note ---
Date of Encounter: 08/09/16 Time of Encounter: 15:00 - Cardiology Event Note Per discussion with Dr. Mantilla, no significant lesions on catheterization. Cardiology signing off, follow-up as scheduled, re-consult as needed.
[2016-08-09 17:35] VITALS: BP 114/77
--- NOTE | 2016-08-09 18:40 | Discharge Summary ---
Date of Encounter: 08/09/16 Time of Encounter: 15:00 - Discharge Diagnosis (1) Chest pain Priority: Primary Status: Acute Comments: Pt still complains of chest pressure, but it is better than on arrival. Pt had negative heart cath today. Cardiology has signed off. Pt to keep appt with cardiology on Saturday. Qualifiers: Chest pain type: other chest pain Qualified Code(s): R07.89 - Other chest pain; R07.8 - Other chest pain (2) Thrombotic disorder Priority: Secondary Status: Chronic Comments: Restart Eliquis (3) Iron deficiency anemia Priority: Secondary Status: Chronic Comments: Hgb at baseline. Continue Iron supplements. Qualifiers: Iron deficiency anemia type: unspecified iron deficiency Qualified Code(s) : D50.9 - Iron deficiency anemia, unspecified (4) DVT (deep venous thrombosis) Priority: Secondary Status: Acute Comments: Heparin gtt stopped after heart cath. Start eliquis tonight. Qualifiers: DVT location: lower extremity Laterality: right Chronicity: chronic Qualified Code(s): I82.501 - Chronic embolism and thrombosis of unspecified deep veins of right lower extremity - Discharge Medications Home Medications: Aspirin [Adult Low Dose Aspirin EC] 81 mg PO DAILY 08/01/15 [History] [place]-3 Fatty Acids [Fish Oil] 600 mg PO DAILY 08/01/15 [History] Hydrochlorothiazide [Microzide] 12.5 mg PO DAILY 09/09/15 [History] Apixaban [Eliquis] 2.5 mg PO BID #60 tablet 01/05/16 [Rx] Ferrous Sulfate 325 mg PO DAILY #30 tablet 03/19/16 [Rx] Atorvastatin [Lipitor] 40 mg PO HS 07/31/16 [History] Isosorbide MONOnitrate (24 HR) [Imdur] 60 mg PO DAILY 07/31/16 [History] Allergies/Adverse Reactions: Allergies codeine Adverse Reaction (Verified 04/09/16 15:34) Nausea Procedures/tests Complete & Pending: Procedures Performed prior 72 hours Category Date Time Status CL 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 09:38 Ordered ECG 12 lead ECG [ECG] Routine Y 08/09/16 07:00 Completed EKG [ECG 12 lead ECG] [ECG] Stat Y 08/08/16 17:00 Completed Date of admission: 08/08/16 16:45 Primary care physician: Hortencia Haro CNP Discharging clinician: Stephanie Romero Anticipated date of discharge: 08/09/16 - Patient Status Disposition: Home, Self-Care Functional capacity at discharge: independent ambulation Overall status at discharge: patient is back to baseline - Discharge Instructions Follow Up With: Hortencia Haro CNP [Primary Care Provider] - 08/17/16 10:30 am Additional Instructions: Please remember to take your Eliquis twice daily Please restart your home medications, Eliquis tonight. Please follow up with your primary care provider within the next week to 10 days for follow up Keep your appointment with Dr. Sutherland on Saturday Return if you have any other problems or concerns or if your pain returns. - Diet and Activity Activity: resume usual activities as tolerated Diet: advance to your usual diet Hospital course: Ms. Mejia is a 40 year old female who has a 2 month history of dull , constant L chest pain worse with exertion. 9 days ago, she began having sharp, intermittent L chest pain that was also worse with exertion. She denies nausea, diaphoresis or radiation of pain. Pt was seen int he ED for the same and was sent home after negative evaluation. Pain worse yesterday with SOB and exertion. STress test recently showed possible apical reversible ischemia. Pt also had cath today which was negative for blockage. Pt states that she still is having chest pain, but it is better than when she arrived and believed that is due in part to being on heparin gtt all day. Pt believes that her clotting factor is the cause of many of her cardiac and pain problems. She follows up with hematology in September. Pt also states that she is not taking her Eliquis as prescribed because "I can't remember to take them twice so I just take it all at once." Education completed on importance of taking it twice dailiy. Time spent discussing smoking cessation with patient: 3 to 10 minutes - Time Spent with Patient Total time spent providing and/or coordinating discharge services: Less than 30 minutes - Constitutional Vitals: Temp Pulse Resp BP Pulse Ox 98.1 F 63 17 114/77 99 08/09/16 16:26 08/09/16 17:35 08/09/16 16:26 08/09/16 17:35 08/09/16 17:35 General appearance: Present: cooperative, A&O X 3, no acute distress, obese, answers questions appropriately - Head Head exam: Present: normal inspection - Eye Eye exam: Present: normal appearance, conjuntiva pink - ENT ENT exam: Present: mucous membranes moist, normal exam - Neck Neck exam general surgery: Present: normal inspection. Absent: lymphadenopathy , tenderness - Respiratory Respiratory exam: Present: CTAB. Absent: chest wall tenderness, decreased breath sounds - Cardiovascular Cardiovascular exam: Present: RRR, +S1, +S2 - Extremities Exam Extremities exam: Present: full ROM, normal capillary refill, warm, radial pulses palpable and symetrical. Absent: mottling, pedal edema, tenderness - Neurological Exam Neurological exam: Present: alert, oriented X3, strengths equal and symetr throughout, pronater drift. Absent: no focal deficits - VTE Documentation of Mechanical Device: Intermittent pneumatic compression device
--- NOTE | 2016-08-10 09:42 | Invasive Diagnostic Lab ---
Name: Zee Mejia Date of Study: 08/09/2016 Date: 1975 Ht: 168.0 cm /66.1 in Medical Record#: [id number] Age: 40 Wt: 89. kg / 196.21 lb Account/Order#: [id number] Gender: Female BSA: 1.99 Order #: [id number] Fluoro Dose: BMI: 31.53 Procedure Physician: Sean Mantilla MD, FACC Referring MD: Hortencia Haro CNP Referring MD: Procedures Performed: LEFT HEART CATH Indications: Unstable Angina Impressions: The left ventricle is normal and has normal contractility EF 60% Coronary arteries are angiographically normal. Recommendations: Optimal medical therapy of patient's disease. Aggressive risk factor modification. History/Risk Factors: + stress test Procedure Access obtained in the right Radial artery by percutaneous puncture Complications: None, None Contrast: Isovue 53ml Closure Device: Mechanical Compression Hemodynamics: Pressures Site Systolic/ A Wave Diastolic/ V Wave End Diastolic/ Mean HR LV 125 7 14 75 LV 116 42 13 74 AO 123 86 103 80 AO 115 91 103 72 AO 114 90 103 71 LV Ventriculography Ejection Method: LV Gram Ejection Fraction: 60% Wall Motion: LOPEZ Anterobasal Normal Anterolateral Normal Apical: Normal Inferoapical Normal Inferobasal Normal Coronary Dominance: Right, right Lesion Findings/Interventions * Left Main Coronary Artery The LMCA is angiographically free of disease. * Left Anterior Descending The LAD is angiographically free of disease. The 1st Diagonal is angiographically free of disease. * Circumflex The Circumflex is angiographically free of disease. The 1st Marginal is angiographically free of disease. * Right Coronary Artery The RCA is angiographically free of disease. The Right PDA is angiographically free of disease. Updated by Ashlyn Mccarthy RN on 08/09/2016 2:52:41 PM Sean Mantilla MD, FACC electronically signed on 08/10/2016 9:36:36 AM with status of Final
== END 2016-08-09 20:10 | disposition home or self-care (01) ==
LOC: EMEROO 14:20 → 3BNU 14:20
PROVIDERS: ADMIT Internal Medicine; ATTEND Registered Nurse